=== PATIENT | male | born 1955 | race Caucasian/White ===

== ENCOUNTER 2023-08-28 19:45 | Inpatient (IN) | payer MEDICARE ==
[2023-08-28] MEDS ORDERED: Sodium Chloride 0.9% 10 ML Syringe FLUSH PRN (20:14)
[2023-08-28] MEDS ORDERED: Ondansetron 4 MG/2 ML SDV IVPUSH ONE ×2 (20:16→21:43)
[2023-08-28] MEDS ORDERED: Ondansetron 4 MG/2 ML SDV ONE ×2 (20:16→21:44)
[2023-08-28] MEDS ORDERED: Sodium Chloride 0.9% 1,000 ML IV ONE (20:17)
[2023-08-28 20:27] LABS: HEMATOCRIT 43.3 % (40.0-54.0); HEMOGLOBIN 15.7 g/dL (13.0-18.0); LYMPHOCYTES ABSOLUTE AUTO 1.04 K/uL (1.50-4.00); LYMPHOCYTES PERCENT AUTO 7.1 % (20.0-40.0); MEAN CORPUSCULAR HEMOGLOBIN 30.5 pg (27.0-32.0); MEAN CORPUSCULAR HGB CONC 36.3 g/dL (31.0-35.0); MEAN CORPUSCULAR VOLUME 84 fL (76-96); MEAN PLATELET VOLUME 9.7 fL (6.0-10.0); MONOCYTES PERCENT AUTO 2.7 % (3.0-10.0); NEUTROPHILS ABSOLUTE AUTO 13.11 K/uL (2.00-7.50); NEUTROPHILS PERCENT AUTO 90.2 % (45.0-70.0); PLATELET COUNT,PLT 403 K/uL (150-400); RED BLOOD CELL COUNT 5.14 M/uL (4.50-6.50); RED CELL DISTRIBUTION WIDTH 13.4 % (11.0-16.0); WHITE BLOOD CELL COUNT,WBC 14.6 K/uL (4.0-11.0)
[2023-08-28 20:43] LABS: A/G RATIO 1.2 (0.8-2.0); ALBUMIN 4.5 g/dL (3.4-5.0); ANION GAP 38.4 mmol/L (5.0-15.0); BILIRUBIN TOTAL 0.8 mg/dL (0.0-1.0); BUN/CREATININE RATIO 21.7 (6-25); CALCIUM 11.1 mg/dL (8.5-10.1); CREATININE 1.38 mg/dL (0.70-1.30); EST CRCL DRUG DOSING (CG) 57.01 mL/min; POTASSIUM,K 4.9 mmol/L (3.5-5.1); PROTEIN TOTAL,TP 8.1 g/dL (6.4-8.2)
[2023-08-28 20:52] LABS: CARBON DIOXIDE,CO2 8.5 mmol/L (21.0-32.0)
[2023-08-28] MEDS ORDERED: Glucagon,Human Recombinant 1 MG Vial IM PRN ×2 (21:12→22:31)
[2023-08-28] MEDS ORDERED: Insulin Regular, Human 100 Units/ML 3 ML Vial IV ONE (21:12)
[2023-08-28] MEDS ORDERED: 50% Dextrose in Water 50 ML Syringe IVPUSH PRN ×2 (21:12→22:31)
[2023-08-28 21:16] LABS: APPEARANCE,URINE CLEAR (CLEAR); BILIRUBIN,URINE SMALL (NEGATIVE); COLOR,URINE YELLOW; GLUCOSE,URINE 500 mg/dL (NEGATIVE); KETONES,URINE >=160 mg/dL (NEGATIVE); LEUKOCYTE ESTERASE,URINE NEGATIVE (NEGATIVE); NITRITE,URINE NEGATIVE (NEGATIVE); OCCULT BLOOD,URINE NEGATIVE (NEGATIVE); PROTEIN,URINE NEGATIVE (NEGATIVE); UROBILINOGEN,URINE 0.2 E.U./dL (0.2-1.0)
[2023-08-28 21:19] LABS: RBC,URINE NOT SEEN /HPF; WBC,URINE NOT SEEN /HPF
[2023-08-28 21:21] LABS: BASE EXCESS ARTERIAL -19.1 (-2-2); BICARBONATE,ARTERIAL 8.2 mmol/L (22-26); O2 SATURATION ARTERIAL 97.7 % (95-98); PCO2 ARTERIAL 18.7 mmHg (35-45)
[2023-08-28] MEDS ORDERED: Sodium Chloride 0.9% 1,000 ML IV SCH ×2 (21:30→22:00)
[2023-08-28] MEDS ORDERED: Ondansetron 4 MG/2 ML SDV IV PRN (21:35)
[2023-08-28] MEDS ORDERED: Acetaminophen 325 MG Tab PO PRN (22:31)
[2023-08-29] MEDS: Calcium Carbonate 500 MG Tab.Chew PO PRN ×2 (00:05→02:38)
[2023-08-29 01:23] LABS: BASE EXCESS ARTERIAL -18.7 (-2-2); BICARBONATE,ARTERIAL 8.2 mmol/L (22-26); PCO2 ARTERIAL 17.8 mmHg (35-45); PO2 ARTERIAL 99.6 mmHg (80-105)
[2023-08-29] MEDS ORDERED: 50% Dextrose in Water 50 ML Syringe IVPUSH PRN ×4 (01:39→19:18)
[2023-08-29] MEDS ORDERED: Insulin Regular, Human 100 Units/ML 3 ML Vial IV ONE ×2 (01:39→19:18)
[2023-08-29] MEDS ORDERED: Glucagon,Human Recombinant 1 MG Vial IM PRN ×4 (01:39→19:18)
[2023-08-29] MEDS ORDERED: Dextrose 5%-0.45% NaCl 1,000 ML IV PRN (02:51)
[2023-08-29] MEDS ORDERED: 50% Dextrose in Water 50 ML Syringe IVPUSH ONE (02:51)
[2023-08-29 03:27] LABS: ANION GAP 35.5 mmol/L (5.0-15.0); BUN/CREATININE RATIO 20.3 (6-25); CALCIUM 9.1 mg/dL (8.5-10.1); CREATININE 1.48 mg/dL (0.70-1.30); EST CRCL DRUG DOSING (CG) 53.16 mL/min; POTASSIUM,K 4.9 mmol/L (3.5-5.1)
[2023-08-29 03:28] LABS: CARBON DIOXIDE,CO2 9.4 mmol/L (21.0-32.0)
[2023-08-29] MEDS ORDERED: Calcium Carbonate 500 MG Tab.Chew PO PRN (03:43)
[2023-08-29] MEDS: Pantoprazole 40 MG Tab.CR PO SCH (03:44)
[2023-08-29] MEDS ORDERED: Insulin Glargine,Human Rec. Analog 100 Units/ML 3 ML Pen SUBCUT SCH (07:00)
[2023-08-29 07:22] LABS: BASOPHILS ABSOLUTE AUTO 0.01 K/uL (0.02-0.10); BASOPHILS PERCENT AUTO 0.1 % (0.0-0.5); HEMATOCRIT 38.9 % (40.0-54.0); HEMOGLOBIN 14.1 g/dL (13.0-18.0); LYMPHOCYTES ABSOLUTE AUTO 1.16 K/uL (1.50-4.00); LYMPHOCYTES PERCENT AUTO 7.6 % (20.0-40.0); MEAN CORPUSCULAR HEMOGLOBIN 30.9 pg (27.0-32.0); MEAN CORPUSCULAR HGB CONC 36.2 g/dL (31.0-35.0); MEAN CORPUSCULAR VOLUME 85 fL (76-96); MEAN PLATELET VOLUME 9.4 fL (6.0-10.0); MONOCYTES ABSOLUTE AUTO 0.99 K/uL (0.20-0.80); MONOCYTES PERCENT AUTO 6.5 % (3.0-10.0); NEUTROPHILS ABSOLUTE AUTO 13.13 K/uL (2.00-7.50); NEUTROPHILS PERCENT AUTO 85.8 % (45.0-70.0); PLATELET COUNT,PLT 337 K/uL (150-400); RED BLOOD CELL COUNT 4.57 M/uL (4.50-6.50); RED CELL DISTRIBUTION WIDTH 13.2 % (11.0-16.0); WHITE BLOOD CELL COUNT,WBC 15.3 K/uL (4.0-11.0)
[2023-08-29 07:53] LABS: A/G RATIO 1.2 (0.8-2.0); ALBUMIN 3.8 g/dL (3.4-5.0); BILIRUBIN TOTAL 0.6 mg/dL (0.0-1.0); BUN/CREATININE RATIO 18.3 (6-25); CALCIUM 9.3 mg/dL (8.5-10.1); CREATININE 1.53 mg/dL (0.70-1.30); EST CRCL DRUG DOSING (CG) 51.42 mL/min; POTASSIUM,K 3.8 mmol/L (3.5-5.1)
[2023-08-29 07:59] LABS: CARBON DIOXIDE,CO2 12.8 mmol/L (21.0-32.0)
[2023-08-29] MEDS ORDERED: metFORMIN 500 MG Tab.ER PO SCH (08:00)
[2023-08-29] MEDS ORDERED: Empagliflozin 25 MG Tab PO SCH (08:00)
[2023-08-29] MEDS ORDERED: Pantoprazole 40 MG Tab.CR PO SCH (08:00)
[2023-08-29] MEDS: Sodium Chloride 0.9% 1,000 ML IV SCH ×2 (08:39→23:03)
[2023-08-29] MEDS: Cholecalciferol (Vitamin D3) 2,000 Unit Cap PO SCH (08:45)
[2023-08-29] MEDS: Oxybutynin 5 MG Tab.ER PO SCH (08:45)
[2023-08-29] MEDS: Magnesium Oxide 400 MG Tab PO SCH (08:45)
[2023-08-29] MEDS: amLODIPine 10 MG Tab PO SCH (08:45)
[2023-08-29] MEDS: Losartan 50 MG Tab PO SCH (08:45)
[2023-08-29 08:46] LABS: BASE EXCESS ARTERIAL -12.9 (-2-2); BICARBONATE,ARTERIAL 13.6 mmol/L (22-26); O2 SATURATION ARTERIAL 94.8 % (95-98); PO2 ARTERIAL 81.3 mmHg (80-105)
[2023-08-29] MEDS ORDERED: Dextrose 5%-0.45% NaCl 1,000 ML IV SCH (09:30)
[2023-08-29 11:18] LABS: ANION GAP 23.4 mmol/L (5.0-15.0); BUN/CREATININE RATIO 19.3 (6-25); CALCIUM 8.8 mg/dL (8.5-10.1); CREATININE 1.45 mg/dL (0.70-1.30); EST CRCL DRUG DOSING (CG) 54.26 mL/min
[2023-08-29 11:19] LABS: CARBON DIOXIDE,CO2 14.6 mmol/L (21.0-32.0)
[2023-08-29 15:22] LABS: ANION GAP 13.1 mmol/L (5.0-15.0); BUN/CREATININE RATIO 19.1 (6-25); CALCIUM 8.6 mg/dL (8.5-10.1); CARBON DIOXIDE,CO2 22.2 mmol/L (21.0-32.0); CREATININE 1.36 mg/dL (0.70-1.30); EST CRCL DRUG DOSING (CG) 57.85 mL/min; POTASSIUM,K 3.3 mmol/L (3.5-5.1)
[2023-08-29] MEDS ORDERED: Potassium Chloride 20 MEQ Tab.ER PO ONE (15:35)
[2023-08-29] MEDS: Insulin Glargine,Human Rec. Analog 100 Units/ML 3 ML Pen SUBCUT SCH ×2 (17:45→19:23)
[2023-08-29] MEDS ORDERED: Insulin NPH/Insulin Regular,Human 70-30 100 Units/ML 10 ML Vial SUBCUT ONE (19:11)
[2023-08-29] MEDS ORDERED: Insulin Regular, Human 100 Units/ML 3 ML Vial SUBCUT ONE (19:18)
[2023-08-30] MEDS: Sodium Chloride 0.9% 1,000 ML IV SCH (07:05)
[2023-08-30 08:35] LABS: BASOPHILS ABSOLUTE AUTO 0.02 K/uL (0.02-0.10); BASOPHILS PERCENT AUTO 0.2 % (0.0-0.5); EOSINOPHILS ABSOLUTE AUTO 0.09 K/uL (0.04-0.40); HEMATOCRIT 34.9 % (40.0-54.0); HEMOGLOBIN 12.5 g/dL (13.0-18.0); MEAN CORPUSCULAR HEMOGLOBIN 30.5 pg (27.0-32.0); MEAN CORPUSCULAR HGB CONC 35.8 g/dL (31.0-35.0); MEAN CORPUSCULAR VOLUME 85 fL (76-96); MEAN PLATELET VOLUME 9.5 fL (6.0-10.0); MONOCYTES ABSOLUTE AUTO 0.69 K/uL (0.20-0.80); MONOCYTES PERCENT AUTO 7.3 % (3.0-10.0); NEUTROPHILS ABSOLUTE AUTO 7.02 K/uL (2.00-7.50); NEUTROPHILS PERCENT AUTO 74.5 % (45.0-70.0); PLATELET COUNT,PLT 261 K/uL (150-400); RED CELL DISTRIBUTION WIDTH 13.3 % (11.0-16.0); WHITE BLOOD CELL COUNT,WBC 9.4 K/uL (4.0-11.0)
[2023-08-30] MEDS: Oxybutynin 5 MG Tab.ER PO SCH (08:51)
[2023-08-30] MEDS: Losartan 50 MG Tab PO SCH (08:52)
[2023-08-30] MEDS: Cholecalciferol (Vitamin D3) 2,000 Unit Cap PO SCH (08:53)
[2023-08-30] MEDS: amLODIPine 10 MG Tab PO SCH (08:53)
[2023-08-30] MEDS: Pantoprazole 40 MG Tab.CR PO SCH (08:53)
[2023-08-30] MEDS: Magnesium Oxide 400 MG Tab PO SCH (08:54)
[2023-08-30 08:58] LABS: ALBUMIN 2.8 g/dL (3.4-5.0); BILIRUBIN TOTAL 0.7 mg/dL (0.0-1.0); BUN/CREATININE RATIO 20.3 (6-25); CALCIUM 7.8 mg/dL (8.5-10.1); CARBON DIOXIDE,CO2 20.2 mmol/L (21.0-32.0); CREATININE 0.79 mg/dL (0.70-1.30); EST CRCL DRUG DOSING (CG) 99.59 mL/min; POTASSIUM,K 4.2 mmol/L (3.5-5.1); PROTEIN TOTAL,TP 5.7 g/dL (6.4-8.2)
== END 2023-08-30 09:36 | disposition home or self-care (01) | DRG 639 ==
LOC: LB.ED 19:45 → LB.MS 20:10 → UNDOADMOB 20:10 → LB.MS 21:32 → OBSVTOIN 08-29 09:15 → UNDODISOB 08-30 09:36
PROVIDERS: ADMIT Nurse Practitioner Family; ATTEND Nurse Practitioner Family
PROC: 4A033R1 Measurement of Arterial Saturation, Peripheral, Percutaneous Approach (ICD-10-PCS; principal; 2023-08-29)
DX: E11.10 Type 2 diabetes mellitus with ketoacidosis without coma (principal); E86.0 Dehydration; E11.65 Type 2 diabetes mellitus with hyperglycemia; E87.8 Other disorders of electrolyte and fluid balance, not elsewhere classified; R82.4 Acetonuria; Z79.899 Other long term (current) drug therapy; Z79.4 Long term (current) use of insulin; Z79.84 Long term (current) use of oral hypoglycemic drugs
CPT/HCPCS: 36415; 36600; 80048; 80053; 81001; 82803; 82947; 83605; 83690; 83735; 85025; 96361; 96374; 96376; 99285-25; A9270-GY; G0378; J1815-GY; J2405; J3490; J7030; J7042